=== PATIENT | male | born 1990 | race Caucasian/White ===

== ENCOUNTER 2016-12-21 19:45 | Emergency (ER) | payer SELFPAY ==
[~2016-12-21] VITALS: Ht 175.3 cm; Wt 75.0 kg
[2016-12-21 19:50] VITALS: Ht 175.3 cm; Wt 75.0 kg
[2016-12-21] MEDS ORDERED: ONDANSETRON 4 MG INJ IV STA (19:51)
[2016-12-21] MEDS ORDERED: HYDROmorphONE 1 MG/ML SYG IV STA (19:51)
[2016-12-21] MEDS ORDERED: SOD CHLORIDE 0.9% 1,000 ML IV STA (19:51)
[2016-12-21] MEDS ORDERED: DIPHTH/TET/ACEL PERTUSS (ADULT) 0.5 ML VIAL IM* ONE (20:00)
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
[2016-12-21] MEDS ORDERED: IBUP-1542 PO (20:57)
[2016-12-21] MEDS ORDERED: FENTAnyl 50 MCG/ML VIAL IV ONE (21:00)
[2016-12-21] MEDS ORDERED: PROPOFOL 100 ML IV ONE (21:00)
--- NOTE | 2016-12-21 21:46 | RADRPT ---
PROCEDURE: CR Right Elbow CLINICAL INDICATION: Post reduction TECHNIQUE: AP, lateral, and an oblique radiographs were submitted. COMPARISON: Comparison to the study earlier on the same date FINDINGS: Osseous Structures: The osseous elements appear well mineralized and intact. Joint Spaces: The elbow joint dislocation is not satisfactorily reduced. There is a mildly positive anterior fat pad sign compatible with fluid accumulation within the joint capsule. Soft Tissues: Appear unremarkable. IMPRESSION: 1. The right elbow dislocation has been satisfactorily reduced. 2. No fractures identified. 3. Small joint effusion. Physician Gabrielle Date Time Electronically viewed and signed by Physician Gabrielle on 12/21/2016 21:46 /
[2016-12-21 22:25] VITALS: BP 128/93; PULSE 63; RESP 20; TEMP 98.9
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
== END 2016-12-21 22:29 | disposition home or self-care (01) ==
LOC: E/R 19:45
DX: S00.531A Contusion of lip, initial encounter (principal); S53.104A Unspecified dislocation of right ulnohumeral joint, initial encounter; F17.210 Nicotine dependence, cigarettes, uncomplicated; W18.39XA Other fall on same level, initial encounter; Y92.9 Unspecified place or not applicable; Z23 Encounter for immunization
CPT/HCPCS: 29105; 71010; 73080; 73110; 90715; 94770; J1170; J2405; J3010; J7030; 90471; 96374; 96375